=== PATIENT | male | born 1985 | race Caucasian/White ===

== ENCOUNTER 2017-03-30 17:54 | Emergency (ER) | payer OTHER, BC ==
[2017-03-30] MEDS ORDERED: Fluorescein 1 MG Ophth Strip EYEBOTH ONE (18:51)
[2017-03-30] MEDS ORDERED: Tetracaine HCl/PF 0.5% 4 ML Bottle EYEBOTH ONE (18:51)
--- NOTE | 2017-03-30 19:20 | EDM.PDOC ---
ED HPI GENERAL MEDICAL PROBLEM - General Chief Complaint: ENT Problem Stated Complaint: FOREIGN OBJECT IN EYE, [id number] Time Seen by Provider: 03/30/17 19:19 Source of Information: Reports: Patient History Limitations: Reports: No Limitations - History of Present Illness INITIAL COMMENTS - FREE TEXT/NARRATIVE: occurred earlier while grinding metal bed frame - Related Data Allergies Allergy/AdvReac Type Severity Reaction Status Date / Time No Known Allergies Allergy Verified 03/30/17 18:32 Home Meds: Home Meds . [No Known Home Meds] 03/30/17 [History] Past Medical History HEENT History: Reports: Impaired Vision - Past Surgical History HEENT Surgical History: Reports: Other (See Below) Other HEENT Surgeries/Procedures: wisdom teeth Social & Family History - Tobacco Use Smoking Status *Q: Never Smoker - Caffeine Use Caffeine Use: Reports: Energy Drinks, Soda ED ROS GENERAL - Review of Systems Review Of Systems: ROS reveals no pertinent complaints other than HPI. ED EXAM GENERAL W FULL EYE - Physical Exam Exam: See Below Exam Limited By: No Limitations General Appearance: Alert, WD/WN, Mild Distress, Other (eye irritation) Eye Exam: Left Eye: Conjunctival Injection Eyelids: Left: Lid Everted for Exam (no F/B noted), Bilateral: Normal Appearance Conjunctiva & Sclera: Left: Injected Cornea Exam: Left: Foreign Body (removed without problem) Extraocular Movements: Bilateral: Intact Pupillary Size: Bilateral: 4 mm Pupillary Reaction: Bilateral: Brisk Posterior Chamber: Bilateral: Normal Funduscopic Ears: Hearing Grossly Normal Throat/Mouth: Normal Voice, No Airway Compromise Head: Atraumatic Neck: Non-Tender, Full Range of Motion Respiratory/Chest: No Respiratory Distress Cardiovascular: Regular Rate, Rhythm GI/Abdominal: Soft, Non-Tender Neurological: Alert, Oriented, Normal Cognition, Normal Gait, No Motor/Sensory Deficits Psychiatric: Normal Affect, Normal Mood Skin Exam: Warm, Dry, Normal Color Lymphatic: No Adenopathy Course - Vital Signs Last Recorded V/S: Last Vital Signs Temp 36.8 C 03/30/17 18:26 Pulse 73 03/30/17 18:26 Resp 16 03/30/17 18:26 BP 131/63 03/30/17 18:26 Pulse Ox 97 03/30/17 18:26 - Orders/Labs/Meds Meds: Medications Discontinued Medications Generic Name Dose Route Start Last Admin Trade Name Santy PRN Reason Stop Dose Admin Fluorescein Sodium 1 mg 03/30/17 18:51 03/30/17 18:58 Ful-Yue EYEBOTH 03/30/17 18:52 1 mg ONETIME ONE Administration Tetracaine HCl 1 ml 03/30/17 18:51 03/30/17 18:56 Tetracaine 0.5% Steri-Unit Vilma EYEBOTH 03/30/17 18:52 2 drop ASDIRECTED ONE Administration Departure - Departure Time of Disposition: 19:23 Disposition: Home, Self-Care 01 Condition: Good Clinical Impression: Foreign body in cornea, left eye, initial encounter - Discharge Information Instructions: Eye Foreign Body, [id number] Forms: ED Department Discharge Additional Instructions: 1) don't rub eye 2) return if there is any change or concern 3) recheck if still feels irritated after 24 hour rx given; gentamycin eye drops 2 drops qid x 5 days
== END 2017-03-30 19:27 | disposition home or self-care (01) ==
LOC: DL.ED 17:54
DX: T15.02XA Foreign body in cornea, left eye, initial encounter (principal); X58.XXXA Exposure to other specified factors, initial encounter; Y93.89 Activity, other specified; Y99.0 Civilian activity done for income or pay
CPT/HCPCS: 65220; 99282; A9270